=== PATIENT | male | born 1955 | race Caucasian/White ===

== ENCOUNTER 2016-09-28 09:32 | Emergency (ER) | payer OTHER, SELFPAY ==
[~2016-09-28] VITALS: Ht 170.2 cm; Wt 84.0 kg
[2016-09-28 09:38] VITALS: BP 103/70
== END 2016-09-28 11:01 | disposition left against medical advice (07) ==
LOC: ED 10:55
DX: F10.120 Alcohol abuse with intoxication, uncomplicated (principal); F17.210 Nicotine dependence, cigarettes, uncomplicated
CPT/HCPCS: 99283

== ENCOUNTER 2016-10-28 08:40 | Emergency (ER) | payer OTHER ==
[~2016-10-28] VITALS: Ht 170.2 cm; Wt 79.0 kg
[2016-10-28 08:42] VITALS: BP 180/110
[2016-10-28] MEDS ORDERED: LIDOCAINE 1%, 20ML ONE (09:12)
[2016-10-28] MEDS ORDERED: LIDOCAINE 1%, 20ML INFIL ONE (09:30)
[2016-10-28] MEDS ORDERED: BACITRACIN ZINC OINT 500U/GM, 0.9 GM ONE (11:11)
[2016-10-28] MEDS ORDERED: BACITRACIN ZINC OINT 500U/GM, 0.9 GM TP ONE (11:30)
== END 2016-10-28 11:35 | disposition home or self-care (01) ==
LOC: ED 09:26
DX: S61.210A Laceration without foreign body of right index finger without damage to nail, initial encounter (principal); I10 Essential (primary) hypertension; F17.210 Nicotine dependence, cigarettes, uncomplicated; W45.8XXA Other foreign body or object entering through skin, initial encounter; Y93.89 Activity, other specified; Y99.8 Other external cause status; Y92.89 Other specified places as the place of occurrence of the external cause
CPT/HCPCS: 12001; 99283

== ENCOUNTER 2016-11-07 05:59 | Emergency (ER) | payer OTHER ==
[~2016-11-07] VITALS: Ht 170.2 cm; Wt 81.3 kg
[2016-11-07 06:00] VITALS: BP 147/97
== END 2016-11-07 06:35 | disposition home or self-care (01) ==
LOC: ED 06:31
DX: S61.210D Laceration without foreign body of right index finger without damage to nail, subsequent encounter (principal); I10 Essential (primary) hypertension; F17.210 Nicotine dependence, cigarettes, uncomplicated
CPT/HCPCS: 99282

== ENCOUNTER 2017-07-24 19:04 | Emergency (ER) | payer MEDICAID, OTHER ==
[~2017-07-24] VITALS: Ht 170.2 cm; Wt 77.0 kg
[2017-07-24 19:11] VITALS: BP 148/94
[2017-07-24] MEDS ORDERED: PROPARACAINE OPHTH 0.5%, 15ML ONE (19:33)
[2017-07-24] MEDS ORDERED: FLUORESCEIN OPHTHALMIC 1 MG STRIP ONE (19:33)
[2017-07-24] MEDS ORDERED: BACITRACIN ZINC OINT 500U/GM, 0.9 GM ONE (19:43)
[2017-07-24] MEDS ORDERED: FLUORESCEIN OPHTHALMIC 1 MG STRIP RIGHTEYE ONE (20:00)
[2017-07-24] MEDS ORDERED: PROPARACAINE OPHTH 0.5%, 15ML RIGHTEYE ONE (20:00)
== END 2017-07-24 22:29 | disposition home or self-care (01) ==
LOC: ED 20:10
DX: S02.31XB Fracture of orbital floor, right side, initial encounter for open fracture (principal); S02.40CA Maxillary fracture, right side, initial encounter for closed fracture; S00.81XA Abrasion of other part of head, initial encounter; S60.412A Abrasion of right middle finger, initial encounter; I10 Essential (primary) hypertension; F10.20 Alcohol dependence, uncomplicated; W01.0XXA Fall on same level from slipping, tripping and stumbling without subsequent striking against object, initial encounter; Y93.89 Activity, other specified; Y92.098 Other place in other non-institutional residence as the place of occurrence of the external cause; Y99.8 Other external cause status
CPT/HCPCS: 70486; 99284

== ENCOUNTER 2017-11-11 15:58 | Inpatient (IN) | payer MEDICAID ==
[~2017-11-11] VITALS: Ht 170.2 cm; Wt 74.0 kg
[2017-11-11] MEDS ORDERED: SODIUM CHLORIDE FLUSH 10ML SYR IVF ONE (16:30)
[2017-11-11 16:43] LABS: ALANINE AMINOTRANSFERASE 476 U/L (12-78); ALBUMIN 2.9 g/dL (3.4-5.0); ANION GAP 11 mmol/L (5-15); CALCIUM 9.9 mg/dL (8.5-10.1); CHLORIDE 100 mmol/L (98-107); CREATININE 1.34 mg/dL (0.7-1.3)
[2017-11-11 16:58] LABS: ALKALINE PHOSPHATASE 1234 U/L (45-117); TOTAL PROTEIN 7.1 g/dL (6.4-8.2)
[2017-11-11 17:00] LABS: BILIRUBIN,TOTAL 16.8 mg/dL (0.2-1.0)
[2017-11-11 17:31] LABS: MEAN CORPUSCULAR HEMOGLOBIN 33.2 pg (27.5-34.5); MEAN CORPUSCULAR HGB CONC 34.3 g/dL (33.2-36.2); MEAN CORPUSCULAR VOLUME 96.8 fL (81-97); MEAN PLATELET VOLUME 7.9 fL (7.4-10.4); PLATELET COUNT 488 x10^3/uL (130-400); RED BLOOD COUNT 4.01 x10^6/uL (4.38-5.82); RED CELL DISTRIBUTION WIDTH 15.4 % (9.4-14.8)
[2017-11-11 17:43] LABS: INTERNATIONAL NORMALIZED RATIO 0.99 (0.93-1.1); PROTHROMBIN TIME 10.2 Seconds (9.6-11.5)
[2017-11-11 17:56] LABS: MD YES
[2017-11-11 18:07] LABS: EOS#(MANUAL) 0.88 x10^3/uL (0.0-0.4); EOS% (MANUAL) 5 % (1-7); MONOS% (MANUAL) 4 % (2-9)
[2017-11-11 18:11] LABS: LYMPHS% (MANUAL) 16 % (22-44); SEG#(MANUAL) 13.13 x10^3/uL (1.8-6.8); SEGS% (MANUAL) 75 % (42-75)
[2017-11-11 18:16] LABS: ANISOCYTOSIS 2+
[2017-11-11 18:17] LABS: TARGET CELLS 1+
[2017-11-11 18:19] LABS: MICROCYTOSIS 1+
[2017-11-11 18:21] LABS: <PLATELET ESTIMATE> INCREASED
[2017-11-11 18:22] LABS: LARGE PLATELETS 1+
[2017-11-11 19:06] LABS: MICROSCOPIC INDICATED
[2017-11-11 19:09] LABS: CULTURE INDICATED? YES
[2017-11-11] MEDS ORDERED: OMNIPAQUE 350 MG/ML, 100ML BOTTLE ONE (20:11)
[2017-11-11] MEDS ORDERED: BISACODYL 10 MG SUPP PR PRN (21:30)
[2017-11-11] MEDS ORDERED: morphine SULFATE 10 MG/ML, 1ML IVPush PRN (21:30)
[2017-11-11] MEDS: HEPARIN 5,000 UNITS/ML, 1ML SQ SCH (21:30)
[2017-11-11 21:40] VITALS: BP 119/80
[2017-11-11] MEDS: SODIUM CHLORIDE 0.9% 1,000 ML IV SCH (22:10)
[2017-11-11] MEDS: NICOTINE 14MG/24 HR PATCH.TD24 TD SCH (22:11)
[2017-11-11] MEDS: CEFTRIAXONE 1,000 MG in SODIUM CHLORIDE 0.9% 50 ML IV SCH (22:11)
[2017-11-12 02:53] VITALS: BP 101/60
[2017-11-12] MEDS: SODIUM CHLORIDE 0.9% 1,000 ML IV SCH ×3 (05:03→18:29)
[2017-11-12] MEDS: HEPARIN 5,000 UNITS/ML, 1ML SQ SCH ×3 (05:03→20:58)
[2017-11-12 05:43] LABS: ALANINE AMINOTRANSFERASE 395 U/L (12-78); ALBUMIN 2.4 g/dL (3.4-5.0); ANION GAP 8 mmol/L (5-15); CALCIUM 8.6 mg/dL (8.5-10.1); CHLORIDE 104 mmol/L (98-107); CREATININE 0.84 mg/dL (0.7-1.3); MEAN CORPUSCULAR HEMOGLOBIN 32.3 pg (27.5-34.5); MEAN CORPUSCULAR HGB CONC 33.5 g/dL (33.2-36.2); MEAN CORPUSCULAR VOLUME 96.4 fL (81-97); MEAN PLATELET VOLUME 8.1 fL (7.4-10.4); PLATELET COUNT 486 x10^3/uL (130-400); RED BLOOD COUNT 3.75 x10^6/uL (4.38-5.82); RED CELL DISTRIBUTION WIDTH 15.1 % (9.4-14.8)
[2017-11-12 06:00] LABS: ALKALINE PHOSPHATASE 1001 U/L (45-117); BILIRUBIN,TOTAL 13.7 mg/dL (0.2-1.0)
[2017-11-12 06:04] LABS: MD YES
[2017-11-12 06:05] LABS: ANISOCYTOSIS 1+; BAND#(MANUAL) 0.57 x10^3/uL; BANDS%(MANUAL) 4 % (0-7); BASOS#(MANUAL) 0.14 x10^3/uL (0-0.1); BASOS% (MANUAL) 1 % (0-1); LYMPH#(MANUAL) 1.99 x10^3/uL (1-3.4); LYMPHS% (MANUAL) 14 % (22-44); MONOS#(MANUAL) 0.57 x10^3/uL (0.3-2.7); MONOS% (MANUAL) 4 % (2-9); SEG#(MANUAL) 10.93 x10^3/uL (1.8-6.8); SEGS% (MANUAL) 77 % (42-75)
[2017-11-12 06:06] LABS: TARGET CELLS 2+
[2017-11-12 06:07] LABS: <PLATELET ESTIMATE> INCREASED; LARGE PLATELETS 1+
[2017-11-12 06:45] VITALS: BP 111/71
[2017-11-12] MEDS ORDERED: NEOSTIGMINE 1 MG/ML, 10ML ONE (14:06)
[2017-11-12] MEDS ORDERED: GLYCOPYRROLATE 0.2MG/1ML, 5ML ONE (14:06)
[2017-11-12] MEDS ORDERED: CEFAZOLIN 1,000 MG ONE (14:06)
[2017-11-12] MEDS ORDERED: ONDANSETRON 2MG/ML, 2ML ONE (14:06)
[2017-11-12] MEDS ORDERED: FENTANYL PF 100 MCG/2ML ONE ×3 (14:06→15:18)
[2017-11-12] MEDS ORDERED: PROPOFOL 10 MG/ML, 20ML ONE (14:06)
[2017-11-12] MEDS ORDERED: ROCURONIUM 10MG/ML,5ML ONE (14:06)
[2017-11-12] MEDS ORDERED: SUCCINYLCHOLINE 20 MG/ML, 10ML ONE (14:06)
[2017-11-12] MEDS ORDERED: DEXAMETHASONE 4 MG/ML, 1ML ONE (14:06)
[2017-11-12] MEDS ORDERED: OMNIPAQUE 350 MG/ML, 50 ML BOTTLE IV ONE (15:10)
[2017-11-12] MEDS ORDERED: ALBUTEROL SULFATE 2.5 MG/3 ML NPPB PRN (16:00)
[2017-11-12] MEDS ORDERED: ALBUTEROL/IPRATROPIUM 2.5MG/0.5MG, 3 ML NPPB PRN (16:00)
[2017-11-12 18:58] VITALS: BP 146/88
[2017-11-12] MEDS: NICOTINE 14MG/24 HR PATCH.TD24 TD SCH (21:10)
[2017-11-12] MEDS: CEFTRIAXONE 1,000 MG in SODIUM CHLORIDE 0.9% 50 ML IV SCH (21:10)
[2017-11-13] MEDS: SODIUM CHLORIDE 0.9% 1,000 ML IV SCH ×3 (01:17→23:20)
[2017-11-13 01:19] VITALS: BP 101/62
[2017-11-13 05:17] LABS: MEAN CORPUSCULAR HGB CONC 33.8 g/dL (33.2-36.2); MEAN CORPUSCULAR VOLUME 97.8 fL (81-97); MEAN PLATELET VOLUME 8.2 fL (7.4-10.4); PLATELET COUNT 447 x10^3/uL (130-400); RED BLOOD COUNT 3.26 x10^6/uL (4.38-5.82); RED CELL DISTRIBUTION WIDTH 15.1 % (9.4-14.8)
[2017-11-13 05:19] LABS: ANION GAP 6 mmol/L (5-15); CALCIUM 7.8 mg/dL (8.5-10.1); CHLORIDE 105 mmol/L (98-107)
[2017-11-13 05:24] LABS: ALANINE AMINOTRANSFERASE 315 U/L (12-78); ALKALINE PHOSPHATASE 899 U/L (45-117); BILIRUBIN,TOTAL 11.4 mg/dL (0.2-1.0); CREATININE 0.86 mg/dL (0.7-1.3); TOTAL PROTEIN 5.3 g/dL (6.4-8.2)
[2017-11-13] MEDS: HEPARIN 5,000 UNITS/ML, 1ML SQ SCH ×3 (05:30→21:11)
[2017-11-13 05:48] LABS: MD YES
[2017-11-13 05:52] LABS: EOS#(MANUAL) 0.17 x10^3/uL (0.0-0.4); EOS% (MANUAL) 1 % (1-7); LYMPH#(MANUAL) 1.88 x10^3/uL (1-3.4); LYMPHS% (MANUAL) 11 % (22-44); MONOS#(MANUAL) 0.86 x10^3/uL (0.3-2.7); MONOS% (MANUAL) 5 % (2-9); SEG#(MANUAL) 14.19 x10^3/uL (1.8-6.8); SEGS% (MANUAL) 83 % (42-75)
[2017-11-13 05:55] LABS: ANISOCYTOSIS 1+
[2017-11-13 05:56] LABS: <PLATELET ESTIMATE> INCREASED; GIANT PLATELETS 1+; TARGET CELLS 1+
[2017-11-13 06:45] VITALS: BP 126/77
[2017-11-13 12:45] VITALS: BP 150/92
[2017-11-13] MEDS ORDERED: FLUMAZENIL 0.1 MG/1 ML, 5ML ONE (13:12)
[2017-11-13] MEDS ORDERED: PROMETHAZINE 25 MG/ML, 1ML ONE (13:12)
[2017-11-13] MEDS ORDERED: FENTANYL PF 100 MCG/2ML ONE (13:12)
[2017-11-13] MEDS ORDERED: NALOXONE 1 MG/ML, 2ML ONE (13:12)
[2017-11-13] MEDS ORDERED: MEPERIDINE/PF 50 MG/ML ONE (13:12)
[2017-11-13] MEDS ORDERED: MIDAZOLAM 1 MG/ML, 5ML ONE ×2 (13:12)
[2017-11-13] MEDS ORDERED: LIDOCAINE-MPF 2%, 2ML ONE (13:20)
[2017-11-13] MEDS ORDERED: VISIPAQUE 270 MG/ML, 50ML BOTTLE ONE (14:44)
[2017-11-13] MEDS ORDERED: OMNIPAQUE 350 MG/ML, 100ML BOTTLE ONE (18:00)
[2017-11-13 19:16] VITALS: BP 132/87
[2017-11-13] MEDS: ONDANSETRON 2MG/ML, 2ML IVPush PRN (20:11)
[2017-11-13] MEDS ORDERED: MAALOX/HYOSCYAMINE/LIDOCAINE 45 ML BTL PO ONE (20:30)
[2017-11-13] MEDS: CEFTRIAXONE 1,000 MG in SODIUM CHLORIDE 0.9% 50 ML IV SCH (21:13)
[2017-11-13] MEDS: NICOTINE 14MG/24 HR PATCH.TD24 TD SCH (21:14)
[2017-11-14 02:42] VITALS: BP 125/73
[2017-11-14] MEDS: HEPARIN 5,000 UNITS/ML, 1ML SQ SCH ×3 (04:26→20:48)
[2017-11-14 05:51] LABS: MEAN CORPUSCULAR HGB CONC 32.9 g/dL (33.2-36.2); MEAN CORPUSCULAR VOLUME 97.3 fL (81-97); MEAN PLATELET VOLUME 8.3 fL (7.4-10.4); PLATELET COUNT 396 x10^3/uL (130-400); RED BLOOD COUNT 3.61 x10^6/uL (4.38-5.82); RED CELL DISTRIBUTION WIDTH 15.5 % (9.4-14.8)
[2017-11-14 06:04] LABS: CHLORIDE 103 mmol/L (98-107)
[2017-11-14 06:10] LABS: MD YES
[2017-11-14 06:12] LABS: BASOS#(MANUAL) 0.14 x10^3/uL (0-0.1); BASOS% (MANUAL) 1 % (0-1); MONOS% (MANUAL) 7 % (2-9); SEG#(MANUAL) 10.44 x10^3/uL (1.8-6.8); SEGS% (MANUAL) 73 % (42-75)
[2017-11-14 06:13] LABS: EOS#(MANUAL) 0.57 x10^3/uL (0.0-0.4); EOS% (MANUAL) 4 % (1-7); LYMPH#(MANUAL) 2.15 x10^3/uL (1-3.4); LYMPHS% (MANUAL) 15 % (22-44)
[2017-11-14 06:14] LABS: ANISOCYTOSIS 1+; TARGET CELLS 1+
[2017-11-14 06:15] LABS: <PLATELET ESTIMATE> INCREASED
[2017-11-14 06:16] LABS: LARGE PLATELETS 1+
[2017-11-14 06:32] LABS: ALANINE AMINOTRANSFERASE 473 U/L (12-78); ALBUMIN 2.2 g/dL (3.4-5.0); ALKALINE PHOSPHATASE 1121 U/L (45-117); ANION GAP 11 mmol/L (5-15); BILIRUBIN,TOTAL 13.7 mg/dL (0.2-1.0); CREATININE 0.72 mg/dL (0.7-1.3); TOTAL PROTEIN 5.6 g/dL (6.4-8.2)
[2017-11-14 08:00] VITALS: BP 149/88
[2017-11-14] MEDS ORDERED: MAALOX/HYOSCYAMINE/LIDOCAINE 45 ML BTL PO ONE (10:30)
[2017-11-14] MEDS: SUCRALFATE 1 GM/10 ML UDC PO SCH ×3 (11:00→21:15)
[2017-11-14 13:05] VITALS: BP 137/84
[2017-11-14] MEDS ORDERED: LIDOCAINE-MPF 1%, 2ML ONE (13:31)
[2017-11-14] MEDS ORDERED: MIDAZOLAM 1 MG/ML, 5ML ONE ×2 (14:03→15:11)
[2017-11-14] MEDS ORDERED: FENTANYL PF 100 MCG/2ML ONE ×2 (14:03→15:11)
[2017-11-14] MEDS: SODIUM CHLORIDE 0.9% 1,000 ML IV SCH (15:28)
[2017-11-14 19:36] VITALS: BP 149/93
[2017-11-14] MEDS: CEFTRIAXONE 1,000 MG in SODIUM CHLORIDE 0.9% 50 ML IV SCH (21:15)
[2017-11-14] MEDS: NICOTINE 14MG/24 HR PATCH.TD24 TD SCH (21:22)
[2017-11-15 01:06] VITALS: BP 122/79
[2017-11-15 04:44] LABS: MEAN CORPUSCULAR HEMOGLOBIN 32.6 pg (27.5-34.5); MEAN CORPUSCULAR HGB CONC 33.2 g/dL (33.2-36.2); MEAN CORPUSCULAR VOLUME 98.3 fL (81-97); PLATELET COUNT 396 x10^3/uL (130-400); RED BLOOD COUNT 3.39 x10^6/uL (4.38-5.82)
[2017-11-15] MEDS: HEPARIN 5,000 UNITS/ML, 1ML SQ SCH ×3 (04:44→21:16)
[2017-11-15 04:51] LABS: CALCIUM 8.4 mg/dL (8.5-10.1); CHLORIDE 103 mmol/L (98-107)
[2017-11-15 05:12] LABS: ALANINE AMINOTRANSFERASE 395 U/L (12-78); ALBUMIN 2.1 g/dL (3.4-5.0); ALKALINE PHOSPHATASE 1007 U/L (45-117); ANION GAP 8 mmol/L (5-15); BILIRUBIN,TOTAL 11.5 mg/dL (0.2-1.0); CREATININE 0.63 mg/dL (0.7-1.3); TOTAL PROTEIN 5.7 g/dL (6.4-8.2)
[2017-11-15 05:37] LABS: MD YES
[2017-11-15 05:45] LABS: BASOS#(MANUAL) 0.17 x10^3/uL (0-0.1); BASOS% (MANUAL) 1 % (0-1); MONOS#(MANUAL) 1.18 x10^3/uL (0.3-2.7); MONOS% (MANUAL) 7 % (2-9); NRBC % (MANUAL) 1 % (0-1)
[2017-11-15 05:46] LABS: EOS#(MANUAL) 1.01 x10^3/uL (0.0-0.4); EOS% (MANUAL) 6 % (1-7); LYMPH#(MANUAL) 1.68 x10^3/uL (1-3.4); LYMPHS% (MANUAL) 10 % (22-44); SEG#(MANUAL) 12.77 x10^3/uL (1.8-6.8); SEGS% (MANUAL) 76 % (42-75)
[2017-11-15 05:47] LABS: ANISOCYTOSIS 1+; TARGET CELLS 1+
[2017-11-15 05:48] LABS: <PLATELET ESTIMATE> INCREASED
[2017-11-15 05:49] LABS: <PLT MORPHOLOGY> NORMAL PLT MORPH
[2017-11-15] MEDS: SUCRALFATE 1 GM/10 ML UDC PO SCH ×4 (06:34→21:11)
[2017-11-15] MEDS: SODIUM CHLORIDE 0.9% 1,000 ML IV SCH ×2 (06:35→20:49)
[2017-11-15 06:49] VITALS: BP 133/88
[2017-11-15 12:04] VITALS: BP 137/78
[2017-11-15 12:11] LABS: CLOSTRIDIUM DIFFICILE TOXIN NEGATIVE (Negative)
[2017-11-15 12:13] LABS: CLOSTRIDIUM DIFFICILE ANTIGEN POSITIVE
[2017-11-15] MEDS: VANCOMYCIN 50 MG/ML ORAL SUSP PO SCH ×2 (14:30→21:11)
[2017-11-15 19:04] VITALS: BP 133/88
[2017-11-15] MEDS: ONDANSETRON 2MG/ML, 2ML IVPush PRN (20:48)
[2017-11-15] MEDS: CEFTRIAXONE 1,000 MG in SODIUM CHLORIDE 0.9% 50 ML IV SCH (20:49)
[2017-11-15] MEDS: NICOTINE 14MG/24 HR PATCH.TD24 TD SCH (20:52)
[2017-11-16] MEDS: HEPARIN 5,000 UNITS/ML, 1ML SQ SCH ×2 (00:43→14:09)
[2017-11-16 01:19] VITALS: BP 126/82
[2017-11-16] MEDS: VANCOMYCIN 50 MG/ML ORAL SUSP PO SCH ×3 (02:59→14:09)
[2017-11-16 04:50] LABS: MEAN CORPUSCULAR HEMOGLOBIN 32.9 pg (27.5-34.5); MEAN CORPUSCULAR HGB CONC 33.2 g/dL (33.2-36.2); MEAN CORPUSCULAR VOLUME 98.9 fL (81-97); MEAN PLATELET VOLUME 7.8 fL (7.4-10.4); PLATELET COUNT 418 x10^3/uL (130-400); RED BLOOD COUNT 3.27 x10^6/uL (4.38-5.82); RED CELL DISTRIBUTION WIDTH 14.5 % (9.4-14.8)
[2017-11-16 05:05] LABS: CHLORIDE 104 mmol/L (98-107)
[2017-11-16 05:12] LABS: ALANINE AMINOTRANSFERASE 285 U/L (12-78); ALBUMIN 2.1 g/dL (3.4-5.0); ALKALINE PHOSPHATASE 902 U/L (45-117); ANION GAP 8 mmol/L (5-15); BILIRUBIN,TOTAL 9.9 mg/dL (0.2-1.0); CALCIUM 8.3 mg/dL (8.5-10.1); TOTAL PROTEIN 5.9 g/dL (6.4-8.2)
[2017-11-16 05:28] LABS: MD YES
[2017-11-16 05:34] LABS: EOS% (MANUAL) 7 % (1-7); LYMPH#(MANUAL) 2.42 x10^3/uL (1-3.4); LYMPHS% (MANUAL) 13 % (22-44); MONOS#(MANUAL) 1.49 x10^3/uL (0.3-2.7); MONOS% (MANUAL) 8 % (2-9); SEG#(MANUAL) 13.39 x10^3/uL (1.8-6.8); SEGS% (MANUAL) 72 % (42-75)
[2017-11-16 05:37] LABS: ANISOCYTOSIS 1+; TARGET CELLS 1+
[2017-11-16 05:44] LABS: <PLATELET ESTIMATE> INCREASED; <PLT MORPHOLOGY> NORMAL PLT MORPH
[2017-11-16] MEDS: SUCRALFATE 1 GM/10 ML UDC PO SCH ×3 (06:26→16:00)
[2017-11-16 06:53] VITALS: BP 129/83
[2017-11-16] MEDS: SODIUM CHLORIDE 0.9% 1,000 ML IV SCH (09:42)
[2017-11-16] MEDS ORDERED: SUCR1ORA5 PO (10:47)
[2017-11-16] MEDS ORDERED: VANC1VIA3 PO (10:47)
[2017-11-16 13:14] VITALS: BP 117/77
== END 2017-11-16 17:34 | disposition short-term general hospital (02) | DRG 871 ==
LOC: ED 20:19 → EDIP 20:20 → 3NW 21:20
PROVIDERS: ADMIT Internal Medicine; ATTEND Internal Medicine
PROC: 0DB68ZX Excision of Stomach, Via Natural or Artificial Opening Endoscopic, Diagnostic (ICD-10-PCS; 2017-11-12)
PROC: 0FJB8ZZ Inspection of Hepatobiliary Duct, Via Natural or Artificial Opening Endoscopic (ICD-10-PCS; 2017-11-12)
PROC: 0DB48ZX Excision of Esophagogastric Junction, Via Natural or Artificial Opening Endoscopic, Diagnostic (ICD-10-PCS; principal; 2017-11-12 14:00)
PROC: 0FJB3ZZ Inspection of Hepatobiliary Duct, Percutaneous Approach (ICD-10-PCS; 2017-11-13)
PROC: 0F9530Z Drainage of Right Hepatic Duct with Drainage Device, Percutaneous Approach (ICD-10-PCS; 2017-11-14)
DX: A41.9 Sepsis, unspecified organism (principal); K83.1 Obstruction of bile duct; K85.90 Acute pancreatitis without necrosis or infection, unspecified; A04.72 Enterocolitis due to Clostridium difficile, not specified as recurrent; E44.1 Mild protein-calorie malnutrition; E87.1 Hypo-osmolality and hyponatremia; J98.11 Atelectasis; D64.9 Anemia, unspecified; Z68.25 Body mass index [BMI] 25.0-25.9, adult; F17.210 Nicotine dependence, cigarettes, uncomplicated; I10 Essential (primary) hypertension; K75.9 Inflammatory liver disease, unspecified; Z66 Do not resuscitate; Z87.442 Personal history of urinary calculi; K86.89 Other specified diseases of pancreas
CPT/HCPCS: 36415; 47533; 76000; 99285; J3370; J3490; 47540; 71260; 74177; 74181; 76700; 78306; 80053; 81001; 82248; 83690; 85025; 85610; 85730; 86301; 87040; 87086; 87324; 87493; 88172; 88173; 88177; 88305; 88313; 88341; 88342; 99156; 99157; C1894; J0690; J0696; J1100; J1644; J2175; J2250; J2405; J2550; J2704; J2710; J3010; Q9966; Q9967; A9503; C1729; C1751; C1769; C9898; G0461; J0330; J2310; J7030